=== PATIENT | female | born 1950 | race Caucasian/White ===

== ENCOUNTER 2016-09-19 15:19 | Emergency (ER) | payer MEDICARE ==
[2016-09-19 17:09] LABS: HEMOGLOBIN 13.1 gm/dl (12.3-15.3); RED BLOOD COUNT 4.15 M/UL (4.00-5.10); WHITE BLOOD COUNT 12.4 K/UL (4.5-11.0)
[2016-09-19 17:40] LABS: BUN/CREATININE RATIO 22 (0-10)
== END 2016-09-19 19:30 | disposition home or self-care (01) ==
LOC: ER1 15:19
PROVIDERS: Emergency Medicine
DX: R55 Syncope and collapse (principal); E11.9 Type 2 diabetes mellitus without complications; I11.9 Hypertensive heart disease without heart failure; E78.00 Pure hypercholesterolemia, unspecified; F17.210 Nicotine dependence, cigarettes, uncomplicated; Z79.84 Long term (current) use of oral hypoglycemic drugs; Z95.5 Presence of coronary angioplasty implant and graft; Z88.2 Allergy status to sulfonamides; Z79.899 Other long term (current) drug therapy
CPT/HCPCS: 71010; 80053; 82550; 82553; 83874; 84484; 85025; 93005; 99284

== ENCOUNTER → 2020-06-30 | Outpatient (CLI) | payer OTHER ==
[~2020-06-30] MED LIST: OMNICEF 300 MG300 MG PO; ZOFRAN ODT 4 MG4 MG PO
== END ==
LOC: NM 10:00
DX: Z00.00 Encounter for general adult medical examination without abnormal findings (principal); I25.10 Atherosclerotic heart disease of native coronary artery without angina pectoris; I21.9 Acute myocardial infarction, unspecified; I11.9 Hypertensive heart disease without heart failure; R93.1 Abnormal findings on diagnostic imaging of heart and coronary circulation; R94.39 Abnormal result of other cardiovascular function study
CPT/HCPCS: ECHO; 78452; 93017; 93306; A9502; J2785

== ENCOUNTER → 2020-09-27 | Outpatient (CLI) | payer OTHER ==
[2020-09-27 16:59] LABS: BUN/CREATININE RATIO 17 (0-10)
== END ==
LOC: LAB 13:50
PROVIDERS: Internal Medicine Interventional Cardiology
DX: N28.9 Disorder of kidney and ureter, unspecified (principal)
CPT/HCPCS: 36415; 80048

== ENCOUNTER 2020-10-23 21:43 | Emergency (ER) | payer OTHER ==
[2020-10-23 22:25] LABS: HEMOGLOBIN 9.6 gm/dl (12.3-15.3); RED BLOOD COUNT 3.09 M/UL (4.00-5.10); WHITE BLOOD COUNT 15.6 K/UL (4.5-11.0)
[2020-10-23 23:58] LABS: BUN/CREATININE RATIO 16 (0-10)
[2020-10-24] MEDS ORDERED: ZOFRAN ODT 4 MG4 MG PO (02:15)
[2020-10-24] MEDS ORDERED: OMNICEF 300 MG300 MG PO (02:15)
== END 2020-10-24 02:34 | disposition home or self-care (01) ==
LOC: ER1 21:43
PROVIDERS: Emergency Medicine
DX: N39.0 Urinary tract infection, site not specified (principal); I25.10 Atherosclerotic heart disease of native coronary artery without angina pectoris; Z95.1 Presence of aortocoronary bypass graft; Z20.822 Contact with and (suspected) exposure to COVID-19
CPT/HCPCS: 0240U; 71045; 80053; 81001; 82550; 82553; 83605; 83690; 84484; 85025; 85610; 85730; 93005; 96374; 99285; J0696

== ENCOUNTER → 2020-11-12 | Outpatient (CLI) | payer OTHER ==
[2020-11-12 11:39] LABS: HEMOGLOBIN 12.6 gm/dl (12.3-15.3); RED BLOOD COUNT 4.2 M/UL (4.00-5.10)
[2020-11-12 11:57] LABS: BUN/CREATININE RATIO 14 (0-10)
== END ==
LOC: LAB 10:13
PROVIDERS: Internal Medicine Interventional Cardiology
DX: I25.10 Atherosclerotic heart disease of native coronary artery without angina pectoris (principal); E11.22 Type 2 diabetes mellitus with diabetic chronic kidney disease; N18.2 Chronic kidney disease, stage 2 (mild)
CPT/HCPCS: 36415; 80048; 80061; 80076; 83036; 85027

== ENCOUNTER → 2021-01-27 | Outpatient (CLI) | payer MEDICARE | LOC: KOH-I 15:30 | DX: R59.9 Enlarged lymph nodes, unspecified (principal); E04.1 Nontoxic single thyroid nodule | CPT/HCPCS: 76536 ==

== ENCOUNTER → 2021-06-10 | Outpatient (CLI) | payer MEDICARE | LOC: KOH-I 13:00 → EMI 15:16 | DX: M54.50 Low back pain, unspecified (principal); M51.36 Other intervertebral disc degeneration, lumbar region; M48.061 Spinal stenosis, lumbar region without neurogenic claudication; M51.86 Other intervertebral disc disorders, lumbar region | CPT/HCPCS: 72148 ==

== ENCOUNTER → 2021-08-19 | Outpatient (CLI) | payer MEDICARE ==
[2021-08-19 15:33] LABS: BUN/CREATININE RATIO 17 (0-10)
== END ==
LOC: LAB 14:38
PROVIDERS: Internal Medicine Interventional Cardiology
DX: I25.10 Atherosclerotic heart disease of native coronary artery without angina pectoris (principal); N28.9 Disorder of kidney and ureter, unspecified
CPT/HCPCS: 36415; 80048

== ENCOUNTER → 2021-10-17 | Outpatient (CLI) | payer MEDICARE ==
[2021-10-17 16:02] LABS: BUN/CREATININE RATIO 22 (0-10)
== END ==
LOC: LAB 14:55
PROVIDERS: Internal Medicine Interventional Cardiology
DX: N28.9 Disorder of kidney and ureter, unspecified (principal)
CPT/HCPCS: 36415; 80048

== ENCOUNTER → 2021-11-04 | Outpatient (CLI) | payer MEDICARE | LOC: LAB 11:51 | DX: E78.00 Pure hypercholesterolemia, unspecified (principal); M25.561 Pain in right knee; M17.11 Unilateral primary osteoarthritis, right knee | CPT/HCPCS: 73564; 80061; 80076 ==